=== PATIENT | male | born 1970 | race Caucasian/White ===

== ENCOUNTER 2023-09-18 16:11 | Emergency (ER) | payer MEDICAID, OTHER ==
[2023-09-18] MEDS ORDERED: HYDROmorphone 1 MG/ML Syringe ONE (16:25)
[2023-09-18] MEDS ORDERED: HYDROmorphone 1 MG/ML Syringe IVPUSH ONE (16:25)
[2023-09-18] MEDS ORDERED: Ondansetron 4 MG/2 ML SDV IVPUSH ONE (16:25)
[2023-09-18] MEDS ORDERED: Diphtheria,Pertussis(Acell),Tetanus Vaccine 0.5 ML Syringe ONE (16:25)
[2023-09-18] MEDS ORDERED: Ondansetron 4 MG/2 ML SDV ONE (16:25)
[2023-09-18] MEDS ORDERED: Bacitracin Oint 1 GM U/D Packet TOP ONE (16:37)
[2023-09-18] MEDS ORDERED: Acetaminophen 500 MG Tab PO ONE (17:46)
== END 2023-09-18 18:45 | disposition home or self-care (01) ==
LOC: LL.ED 16:11
DX: S80.12XA Contusion of left lower leg, initial encounter (principal); Z23 Encounter for immunization; W01.0XXA Fall on same level from slipping, tripping and stumbling without subsequent striking against object, initial encounter
CPT/HCPCS: 73590-LT; 90471; 90715; 96374; 96375; 99283-25; A9270-GY; J1170; J2405